=== PATIENT | male | born 1985 ===

== ENCOUNTER 2016-11-20 10:18 | Emergency (ER) | payer MEDICAID ==
[2016-11-20 10:26] VITALS: BP 137/75; PULSE 92; TEMP 97; O2SAT 98; BMI 18.4
[2016-11-20] MEDS ORDERED: Sodium Chloride 0.9% 1,000 ML IV STA (10:42)
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
[2016-11-20 11:23] LABS: ALB/GLOB RATIO 1.2 (1.0-2.1); ALKALINE PHOSPHATASE 60 U/L (38-126); ALT/SGPT 40 U/L (21-72); AST/SGOT 26 U/L (17-59); BILIRUBIN,TOTAL 0.7 mg/dl (0.2-1.3); BLOOD UREA NITROGEN 17 mg/dl (9-20); CALCIUM 9.6 mg/dL (8.4-10.2); CARBON DIOXIDE 28 mmol/L (22-30); CHLORIDE 103 mmol/L (98-107); GFR AFRICAN-AMERICAN > 60; GLUCOSE,RANDOM 91 mg/dL (75-110); POTASSIUM 4.1 MMOL/L (3.6-5.0); SODIUM 140 mmol/l (132-148); TOTAL PROTEIN 8.2 G/DL (6.3-8.2)
--- NOTE | 2016-11-20 11:30 | CT ---
PROCEDURE: CT HEAD WITHOUT CONTRAST. HISTORY: headache COMPARISON: 10/11/2012 TECHNIQUE: Axial computed tomography images were obtained through the head/brain without intravenous contrast. Radiation dose: Total exam DLP = 868.43 mGy-cm. FINDINGS: HEMORRHAGE: No intracranial hemorrhage. BRAIN: No mass effect or edema. No atrophy or chronic microvascular ischemic changes. VENTRICLES: Unremarkable. No hydrocephalus. CALVARIUM: Unremarkable. PARANASAL SINUSES: Unremarkable as visualized. No significant inflammatory changes. MASTOID AIR CELLS: Unremarkable as visualized. No inflammatory changes. OTHER FINDINGS: None. IMPRESSION: Normal CT of the Head. No intracranial mass, hemorrhage or evidence of acute infarct.
[2016-11-20 11:32] LABS: BASO % 0.3 % (0.0-2.0); EOS # 0.1 K/uL (0.0-0.7); EOS % 0.8 % (0.0-4.0); HEMATOCRIT 46.5 % (35.0-51.0); LYMPH # 1.7 K/uL (1.0-4.3); LYMPH % 16.6 % (20.0-40.0); MEAN CELL VOLUME 85.6 fl (80.0-94.0); MEAN CORPUSCULAR HGB CONC 32.7 g/dL (33.0-37.0); MEAN PLATELET VOLUME 8.2 fl (7.2-11.7); MONO # 0.8 K/uL (0.0-0.8); MONO % 8.1 % (0.0-10.0); NEUT # 7.5 K/uL (1.8-7.0); NEUT % 74.2 % (50.0-75.0); RED CELL DISTRIBUTION WIDTH 13.6 % (11.5-14.5); WHITE BLOOD COUNT 10.1 K/uL (4.8-10.8)
--- NOTE | 2016-11-23 10:18 | CARD ---
APPROVED REPORT EKG Measurement Heart [id number] <Conclusion> Normal sinus rhythm Minimal voltage criteria for LVH, may be normal variant Borderline ECG
== END 2016-11-20 13:35 | disposition home or self-care (01) ==
LOC: H.ER 10:18
DX: G40.909 Epilepsy, unspecified, not intractable, without status epilepticus (principal); R51 Headache

== ENCOUNTER 2017-05-21 16:57 | Emergency (ER) | payer MEDICAID, OTHER ==
[2017-05-21 16:57] VITALS: BMI 18.4
[2017-05-21 17:11] VITALS: BP 132/89; PULSE 79; RESP 20; TEMP 98.2; O2SAT 99
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
--- NOTE | 2017-05-21 17:54 | CT ---
PROCEDURE: CT HEAD WITHOUT CONTRAST. HISTORY: headache COMPARISON: None available. TECHNIQUE: Axial computed tomography images were obtained through the head/brain without intravenous contrast. Radiation dose: Total exam DLP = 855 mGy-cm. This CT exam was performed using one or more of the following dose reduction techniques: Automated exposure control, adjustment of the mA and/or kV according to patient size, and/or use of iterative reconstruction technique. FINDINGS: HEMORRHAGE: No intracranial hemorrhage. BRAIN: No mass effect or edema. No atrophy or chronic microvascular ischemic changes. VENTRICLES: Unremarkable. No hydrocephalus. CALVARIUM: Unremarkable. PARANASAL SINUSES: Unremarkable as visualized. No significant inflammatory changes. MASTOID AIR CELLS: Unremarkable as visualized. No inflammatory changes. OTHER FINDINGS: None. IMPRESSION: Normal CT of the Head.
[2017-05-21 17:57] LABS: ALCOHOL SERUM < 10 mg/dl (0-10); BLOOD UREA NITROGEN 19 mg/dl (9-20); CALCIUM 9.2 mg/dL (8.4-10.2); CARBON DIOXIDE 27 mmol/L (22-30); CHLORIDE 104 mmol/L (98-107); GFR AFRICAN-AMERICAN > 60; GLUCOSE,RANDOM 83 mg/dL (75-110); POTASSIUM 4.5 MMOL/L (3.6-5.0); SODIUM 141 mmol/l (132-148)
[2017-05-21 18:03] LABS: BASO # 0.1 K/uL (0.0-0.2); BASO % 0.7 % (0.0-2.0); EOS # 0.3 K/uL (0.0-0.7); EOS % 3.3 % (0.0-4.0); HEMATOCRIT 43.5 % (35.0-51.0); LYMPH # 2.8 K/uL (1.0-4.3); LYMPH % 27.2 % (20.0-40.0); MEAN CELL VOLUME 87.4 fl (80.0-94.0); MEAN CORPUSCULAR HEMOGLOBIN 28.2 pg (27.0-31.0); MEAN CORPUSCULAR HGB CONC 32.2 g/dL (33.0-37.0); MEAN PLATELET VOLUME 8.2 fl (7.2-11.7); MONO # 0.7 K/uL (0.0-0.8); MONO % 6.4 % (0.0-10.0); NEUT # 6.3 K/uL (1.8-7.0); NEUT % 62.4 % (50.0-75.0); RED CELL DISTRIBUTION WIDTH 13.9 % (11.5-14.5); WHITE BLOOD COUNT 10.1 K/uL (4.8-10.8)
--- NOTE | 2017-05-22 08:38 | CARD ---
APPROVED REPORT EKG Measurement Heart [id number] <Conclusion> Normal sinus rhythm Normal ECG
== END 2017-05-21 18:00 | disposition left against medical advice (07) ==
LOC: H.ER 16:57
DX: R56.9 Unspecified convulsions (principal)

== ENCOUNTER 2017-09-13 17:28 | Emergency (ER) | payer MEDICAID, OTHER ==
[2017-09-13 17:28] VITALS: BMI 18.4
[2017-09-13 17:34] VITALS: BP 134/66; PULSE 78; RESP 16; TEMP 99.2; O2SAT 99
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
== END 2017-09-13 18:35 | disposition left against medical advice (07) ==
LOC: H.ER 17:28
DX: G40.909 Epilepsy, unspecified, not intractable, without status epilepticus (principal); S09.90XA Unspecified injury of head, initial encounter; W19.XXXA Unspecified fall, initial encounter; Y92.89 Other specified places as the place of occurrence of the external cause

== ENCOUNTER 2017-11-05 19:50 | Emergency (ER) | payer OTHER ==
[2017-11-05 19:50] VITALS: BMI 18.4
[2017-11-05 20:17] VITALS: BP 134/79; PULSE 81; RESP 18; TEMP 97.9; O2SAT 97
[2017-11-05 20:36] LABS: CALCIUM 9.4 mg/dL (8.4-10.2); GFR AFRICAN-AMERICAN > 60; GFR NON-AFRICAN AMERICAN > 60
[2017-11-05 20:37] LABS: BLOOD UREA NITROGEN 15 mg/dl (9-20)
--- NOTE | 2017-11-05 20:50 | ED PDOC ---
HPI: Seizure Time Seen by Provider: 11/05/17 19:59 Chief Complaint (Nursing): Seizure Chief Complaint (Provider): Seizure History Per: Patient, Other (girl friend) History/Exam Limitations: no limitations Recent Seizure Activity Began: Hours Ago: (1 hour prior to arrival) Number Of Seizures: One Length Of Seizures (Duration): Minutes (5 minutes) Associated Symptoms: Bit Tongue Additional Complaint(s): 32 yo male, brought in with EMS and girlfriend, with a history of seizure disorder, presents to the ED after enduring a 5 minute seizure during dinner, onset of 1 hour prior to arrival. Patient is supposed to be taking Keppra BID, but has been noncompliant because he does not like the way he feels on the medication. Patient experienced a seizure with tonic-clonic activity associated with frothy and bloody spit up with some tongue biting. Past Medical History Reviewed: Historical Data, Nursing Documentation, Vital Signs Vital Signs: Last Vital Signs Temp 97.9 F 11/05/17 20:17 Pulse 81 11/05/17 20:17 Resp 18 11/05/17 20:17 BP 134/79 11/05/17 20:17 Pulse Ox 97 11/05/17 20:57 - Medical History PMH: Seizures Denies: HTN - Surgical History Surgical History: No Surg Hx - Family History Family History: States: Unknown Family Hx - Social History Current smoker - smoking cessation education provided: Yes (heavy smoker >10 cigarettes daily) Ex-Smoker (has not smoked in the last 12 months): No Alcohol: Social - Immunization History Hx Tetanus Toxoid Vaccination: No Hx Influenza Vaccination: No Hx Pneumococcal Vaccination: No - Home Medications Home Medications: Ambulatory Orders Medication Instructions Recorded Keppra 500 mg PO BID 01/10/17 Levetiracetam [Keppra] 500 mg PO BID #60 tablet 09/13/17 - Allergies Allergies/Adverse Reactions: Allergies Allergy/AdvReac Type Severity Reaction Status Date / Time No Known Allergies Allergy Verified 11/05/17 19:51 Review of Systems ROS Statement: Except As Marked, All Systems Reviewed And Found Negative ENT: Positive for: Other (tongue biting) Neurological: Positive for: Seizures Physical Exam - Reviewed Nursing Documentation Reviewed: Yes Vital Signs Reviewed: Yes - Physical Exam Appears: Positive for: Well Head Exam: Positive for: ATRAUMATIC, NORMAL INSPECTION, NORMOCEPHALIC Skin: Positive for: Normal Color, Warm Eye Exam: Positive for: Normal appearance, EOMI, PERRL ENT: Positive for: Normal ENT Inspection Neck: Positive for: Normal, Painless ROM, Supple Cardiovascular/Chest: Positive for: Regular Rate, Rhythm. Negative for: Murmur Respiratory: Positive for: Normal Breath Sounds. Negative for: Respiratory Distress Gastrointestinal/Abdominal: Positive for: Normal Exam, Soft. Negative for: Tenderness Back: Positive for: Normal Inspection Extremity: Positive for: Normal ROM. Negative for: Pedal Edema, Deformity Neurologic/Psych: Positive for: Alert, Oriented (x3). Negative for: Motor/ Sensory Deficits, Mood/Affect, Cerebellar Tests, Gait, Aphasia, Facial Droop - Laboratory Results Result Diagrams: 11/05/17 20:19 - ECG O2 Sat by Pulse Oximetry: 97 (RA) Pulse Ox Interpretation: Normal Medical Decision Making Medical Decision Making: Time: --20:10 Impression: --Seizure in setting of non compliance with medication Plan: --KEPPRA 750mg Reassess 915 Patient without seizure activity in ER. Neurologically intact with normal vitals, expressed the dire importance of followup with neurology as soon as possible with patient, who verbalized understanding. Return precautions discussed. Scribe Attestation: Documented by Adam Diaz acting as a scribe for Enrique Jansen MD. Provider Attestation: All medical record entries made by the Scribe were at my direction and personally dictated by me. I have reviewed the chart and agree that the record accurately reflects my personal performance of the history, physical exam, medical decision making, and the department course for this patient. I have also personally directed, reviewed, and agree with the discharge instructions and disposition. Disposition - Clinical Impression Clinical Impression: Recurrent seizures - Disposition Referrals: Tien Anthony MD [Medical Doctor] - Disposition: Routine/Home Disposition Time: 21:15 Condition: STABLE Additional Instructions: Please followup with neurolgy in 1 - 2 days to have your medications adjusted. Instructions: Medication Safety, Adult, Seizures Forms: [employer] (Armenian)
== END 2017-11-05 21:25 | disposition home or self-care (01) ==
LOC: H.ER 19:50
DX: G40.909 Epilepsy, unspecified, not intractable, without status epilepticus (principal); Z91.14 Patient's other noncompliance with medication regimen; F17.210 Nicotine dependence, cigarettes, uncomplicated
CPT/HCPCS: 80048; 82948; 96374; 99285; J1953

== ENCOUNTER 2017-12-04 23:24 | Emergency (ER) | payer MEDICAID, OTHER ==
[2017-12-04 23:25] VITALS: BMI 18.4
[2017-12-04 23:31] VITALS: O2SAT 98
[2017-12-04] MEDS ORDERED: Sodium Chloride 0.9% 1,000 ML IV STA ×2 (23:34)
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
[2017-12-05 00:35] LABS: BASO # 0.1 K/uL (0.0-0.2); BASO % 0.4 % (0.0-2.0); EOS # 1.2 K/uL (0.0-0.7); HEMOGLOBIN 15.5 g/dL (12.0-18.0); LYMPH # 9.6 K/uL (1.0-4.3); LYMPH % 40.4 % (20.0-40.0); MEAN CELL VOLUME 91.1 fl (80.0-94.0); MEAN CORPUSCULAR HEMOGLOBIN 28.5 pg (27.0-31.0); MEAN CORPUSCULAR HGB CONC 31.3 g/dL (33.0-37.0); MEAN PLATELET VOLUME 8.9 fl (7.2-11.7); MONO # 1.7 K/uL (0.0-0.8); MONO % 7.3 % (0.0-10.0); NEUT # 11.2 K/uL (1.8-7.0); NEUT % 46.9 % (50.0-75.0); RBC 5.44 Mil/uL (4.40-5.90); RED CELL DISTRIBUTION WIDTH 14.8 % (11.5-14.5); WHITE BLOOD COUNT 23.8 K/uL (4.8-10.8)
[2017-12-05 01:12] LABS: ALB/GLOB RATIO 1.4 (1.0-2.1); ALBUMIN 5.3 g/dL (3.5-5.0); ALT/SGPT 52 U/L (21-72); AST/SGOT 40 U/L (17-59); BLOOD UREA NITROGEN 16 mg/dl (9-20); CALCIUM 10.1 mg/dL (8.4-10.2); GFR AFRICAN-AMERICAN > 60; GFR NON-AFRICAN AMERICAN > 60
--- NOTE | 2017-12-05 02:10 | ED PDOC ---
- Laboratory Results Result Diagrams: 12/04/17 23:57 12/04/17 23:57 - ECG O2 Sat by Pulse Oximetry: 98 - Progress ED Course And Treament: 12am Rec'd endorsement from Dr Logan. Pt with h/o seizure d/o who is noncompliant with medications, presenting s/p seizure. Was also combative on arrival, questionable if due to postictal state. From previous charts pt has also h/o UDS with +PCP and +opiates. Disposition - Clinical Impression Clinical Impression: Seizure - Disposition Condition: FAIR Forms: [facility] (Romansh)
[2017-12-05] MEDS ORDERED: levETIRAcetam 500 MG in Sodium Chloride 0.9% 100 ML IVPB ONE (05:05)
[2017-12-05 05:55] LABS: BARBITURATES, UR NEGATIVE (NEGATIVE); BENZODIAZEPINES, UR NEGATIVE (NEGATIVE); OPIATES, UR POSITIVE (NEGATIVE); PHENCYCLIDINE, UR NEGATIVE (NEGATIVE)
[2017-12-05 06:38] VITALS: BP 123/60; PULSE 80; RESP 20
--- NOTE | 2017-12-05 10:29 | CT ---
PROCEDURE: CT HEAD WITHOUT CONTRAST. HISTORY: r/o bleed COMPARISON: CT head dated 05/21/2017. TECHNIQUE: Axial computed tomography images were obtained through the head/brain without intravenous contrast. Radiation dose: Total exam DLP = 931.3 mGy-cm. This CT exam was performed using one or more of the following dose reduction techniques: Automated exposure control, adjustment of the mA and/or kV according to patient size, and/or use of iterative reconstruction technique. FINDINGS: HEMORRHAGE: No intracranial hemorrhage. BRAIN: No mass effect or edema. No atrophy or chronic microvascular ischemic changes. VENTRICLES: Unremarkable. No hydrocephalus. CALVARIUM: Unremarkable. PARANASAL SINUSES: Bilateral frontal, sphenoid and ethmoid air cell opacification. MASTOID AIR CELLS: Unremarkable as visualized. No inflammatory changes. OTHER FINDINGS: None. IMPRESSION: No acute intracranial pathology. Sinus disease.
--- NOTE | 2017-12-05 10:30 | RAD ---
HISTORY: cough COMPARISON: Chest radiograph dated 06/28/2015. FINDINGS: LUNGS: No active pulmonary disease. PLEURA: No significant pleural effusion identified, no pneumothorax apparent. CARDIOVASCULAR: Normal. OSSEOUS STRUCTURES: No significant abnormalities. VISUALIZED UPPER ABDOMEN: Normal. OTHER FINDINGS: None. IMPRESSION: No active disease.
--- NOTE | 2017-12-05 14:51 | CARD ---
APPROVED REPORT EKG Measurement Heart [id number] [place] 154P38 [id number] <Conclusion> Normal sinus rhythm ST elevation, consider early repolarization, pericarditis, or injury Abnormal ECG
== END 2017-12-05 06:58 | disposition home or self-care (01) ==
LOC: H.ER 23:24
DX: G40.909 Epilepsy, unspecified, not intractable, without status epilepticus (principal)
CPT/HCPCS: 70450; 71045; 80053; 80299; 80320; 80324; 80345; 80346; 80349; 80353; 80358; 80361; 82948; 83992; 85025; 93005; 96361; 96365; 96375; 99285; J1953; J2060; J7040; J7042

== ENCOUNTER 2018-08-14 17:29 | Inpatient (IN) | payer OTHER ==
[2018-08-14 17:29] VITALS: BMI 18.4
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
[2018-08-14 18:57] LABS: HEMOGLOBIN 13.9 g/dL (12.0-18.0); MEAN CORPUSCULAR HEMOGLOBIN 28.4 pg (27.0-31.0); MEAN CORPUSCULAR HGB CONC 32.3 g/dL (33.0-37.0); RBC 4.91 Mil/uL (4.40-5.90); RED CELL DISTRIBUTION WIDTH 13.8 % (11.5-14.5); WHITE BLOOD COUNT 12.9 K/uL (4.8-10.8)
[2018-08-14 18:59] LABS: SQUAMOUS EPITHIAL < 1 /hpf (0-5); URINE BACTERIA RARE (<OCC); URINE BILIRUBIN NEGATIVE (NEGATIVE); URINE BLOOD NEGATIVE (NEGATIVE); URINE CLARITY SLIGHTY-CLOUDY (Clear); URINE COLOR YELLOW (YELLOW); URINE GLUCOSE (UA) NEG (NEGATIVE); URINE HYALINE CAST 0-2 /hpf (0-2); URINE LEUKOCYTE ESTERASE NEG Leu/uL (Negative); URINE PROTEIN NEGATIVE (NEGATIVE)
[2018-08-14 19:05] LABS: ALB/GLOB RATIO 1.2 (1.0-2.1); ALBUMIN 4.1 g/dL (3.5-5.0); ALT/SGPT 58 U/L (21-72); AST/SGOT 42 U/L (17-59); BLOOD UREA NITROGEN 12 mg/dl (9-20); CALCIUM 9.4 mg/dL (8.4-10.2); GFR NON-AFRICAN AMERICAN > 60
[2018-08-14 19:12] LABS: BARBITURATES, UR NEGATIVE (NEGATIVE); BENZODIAZEPINES, UR NEGATIVE (NEGATIVE); OPIATES, UR NEGATIVE (NEGATIVE); PHENCYCLIDINE, UR NEGATIVE (NEGATIVE)
[2018-08-14 20:56] VITALS: O2SAT 97
[2018-08-14] MEDS ORDERED: Divalproex 500 mg ER (ONCE DAILY formulation) PO ONE (21:03)
[2018-08-14] MEDS ORDERED: Alum-Mag Hydrox-Simethicone Susp (30 mL) PO PRN (21:25)
[2018-08-14] MEDS ORDERED: DiphenhydrAMINE 50 mg/ml Inj IM PRN (21:25)
[2018-08-14] MEDS ORDERED: Magnesium Hydroxide Susp 30 ml UD PO PRN (21:25)
--- NOTE | 2018-08-14 21:47 | PCM.BM ---
<Himanshu Membreno - Last Filed: 08/14/18 21:44> Treatment Plan Problems - Problems identified on initial assessmt Auditory Hallucinations Date Initiated: 08/14/18 Time Initiated: 21:45 Assessment reference: NA Status: Active Medication nonadherence Date Initiated: 08/14/18 Time Initiated: 21:45 Assessment reference: NA Status: Active Treatment assets and liabiliti Patient Assests: good support system, negotiates basic needs Patient Liabilities: substance abuse (uses marijuana everyday), medical problems (seizure disorder) - Milieu Protocol Maintain good personal hygiene: daily Encourage regular showers, daily Remind patient to perform daily oral care, daily Assist patient to perform ADL's Conduct patient checks and document Observation sheet: Q15 minutes Maintain personal safety: every shift Educate patient to report safety concerns to staff, every shift Monitor environment for contraband/sharps Medication safety: Monitor for expected outcome, potential side effects: every shift, Assess barriers to learning: every shift, Assess readiness for medication education: every shift <Awa Bell - Last Filed: 08/15/18 09:18> - Diagnosis (1) Substance-induced psychotic disorder Status: Acute Interventions: Medication management, Individual and group therapy, Psychoeducation 08/15/18 09:18 (2) Cannabis abuse Status: Acute Interventions: Psychoeducation, Motivational Interviewing 08/15/18 09:19 <Gia Zapata M - Last Filed: 08/15/18 12:44> Family Contact Family involvement: Family/SO is involved Family contact: Patient agrees to contact, Family has been contacted by patient, Telephone contact initiated by staff Family contact name: Yvonne- Mother Family contacted how many times per week?: 1 - Goals for Treatment Patient goals for treatment: Pt's goal is to be free of drug abuse. Pt will learn 5 triggers for drug use. Pt will avoid people, place and situations where temptation might be overwhelming. Pt will attend clinical and activity groups to learn different coping skills to better address and handle stressful situations. Discharge/Continuing Care - Education Needs Education Needs: Family Medication, Family Diagnosis/Disease Process, Family Coping Skills, Family Community resources, Family Health Practices/Safety, Family Personal Hygiene/Grooming, Family Aftercare Safety Plan, Patient Medication, Patient Diagnosis/Disease Process, Patient Coping Skills, Patient Community resources, Patient Health Practices/Safety, Patient Personal Hygiene/Grooming, Patient Aftercare Safety Plan - Discharge Discharge Criteria: Tolerates medication w/o severe side effects, Free of agitation, Ability to care for self, Other (Free of drug abuse) Discharge to:: Home, With Family - Additional Comments 08/15/18 11:55 Pt seen and discussed in team meeting. Reason for hospitalization reviewed and discussed. Pt reported he was referred to the ED because "the other night i caught a seizure." Pt advised that it is not normal for a seizure to cause pt's to undress themselves in public. Pt became irritable with team members. Pt reported that he would not like to discus the events that took place prior to admission as "you weren't there to see it." Pt's u-tox is positive for marijuana and reportedly, pt uses large amount of marijuana daily. Pt signed a 48 hour notice of intent to leave at 855am on 08/15/2018. Pt has a tentative discharge date for tomorrow, 08/16/2018. Labor Expediter inquired about after care referrals such as outpatient substance abuse and/or mental health treatment; pt was hesitant to referrals. Pt will most likely not attend scheduled outpatient appointments therefore pt will be provided with a list of resources in the community. Pt refusing medications. Pt provided script writer with verbal and written authorization to contact his mother, Yvonne for additional information. Labor Expediter will continue to follow case. - Treatment Team Participation Discussed with Family/SO: No Was Patient/Family/SO present at Treatment Team Meeting: Yes
[2018-08-15 06:41] LABS: BASO % 0.4 % (0.0-2.0); EOS # 0.2 K/uL (0.0-0.7); EOS % 2.4 % (0.0-4.0); HEMOGLOBIN 13.8 g/dL (12.0-18.0); LYMPH # 2.6 K/uL (1.0-4.3); LYMPH % 26.2 % (20.0-40.0); MEAN CELL VOLUME 86.3 fl (80.0-94.0); MEAN CORPUSCULAR HEMOGLOBIN 28.8 pg (27.0-31.0); MEAN CORPUSCULAR HGB CONC 33.3 g/dL (33.0-37.0); MEAN PLATELET VOLUME 7.6 fl (7.2-11.7); MONO # 0.8 K/uL (0.0-0.8); MONO % 8.3 % (0.0-10.0); NEUT # 6.2 K/uL (1.8-7.0); NEUT % 62.7 % (50.0-75.0); NRBC % 0.1 % (0.0-0.0); RBC 4.8 Mil/uL (4.40-5.90); WHITE BLOOD COUNT 9.9 K/uL (4.8-10.8)
[2018-08-15 07:08] LABS: T4 7.94 ug/dl (5.5-11.0)
--- NOTE | 2018-08-15 09:05 | CT ---
Date of service: 08/14/2018 PROCEDURE: CT HEAD WITHOUT CONTRAST. HISTORY: head injury, new onset psychosis COMPARISON: 12/05/2017. TECHNIQUE: Axial computed tomography images were obtained through the head/brain without intravenous contrast. Radiation dose: Total exam DLP = 860.51 mGy-cm. This CT exam was performed using one or more of the following dose reduction techniques: Automated exposure control, adjustment of the mA and/or kV according to patient size, and/or use of iterative reconstruction technique. FINDINGS: HEMORRHAGE: No intracranial hemorrhage. BRAIN: Mendoza-white matter differentiation is preserved. There is no mass, mass effect or abnormal extra-axial fluid collection. There is no territorial infarction. The midline sagittal structures are normal. VENTRICLES: The ventricles are normal in size, shape and configuration. CALVARIUM: There is no calvarial fracture or extracranial soft tissue swelling. PARANASAL SINUSES: There is moderate polypoid mucosal thickening in the right frontal sinus, left sphenoid chamber and scattered mucosal thickening in the ethmoid air cells. MASTOID AIR CELLS: Predominantly clear. OTHER FINDINGS: None. IMPRESSION: No acute intracranial abnormality. Chronic right frontal and left sphenoid sinusitis. A preliminary report was provided by [employer].
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
--- NOTE | 2018-08-15 09:56 | RAD ---
Date of service: 08/14/2018 HISTORY: admission, psychosis COMPARISON: 12/05/2017. FINDINGS: LUNGS: The lungs are well inflated and clear. PLEURA: No pleural effusions or pneumothorax. CARDIOVASCULAR: The heart is normal in size. No aortic atherosclerotic calcification present. OSSEOUS STRUCTURES: Within normal limits for the patient's age. VISUALIZED UPPER ABDOMEN: Normal. OTHER FINDINGS: None. IMPRESSION: No active pulmonary disease.
--- NOTE | 2018-08-15 11:28 | CARD ---
APPROVED REPORT Date of service: 08/14/2018 EKG Measurement Heart [id number] <Conclusion> Normal sinus rhythm Normal ECG
--- NOTE | 2018-08-15 13:40 | CP.PCM.CON ---
History of Present Illness - History of Present Illness History of Present Illness: Reason for Consult: Per hospital protocol HPI: 33 year old male hx of traumatic brain injury with history of seizures, admitted to psych for bizarre behavior while intoxicated on marijuana. Patient smokes regularly for over ten years. Most of history obtained from chart review as patient willingly sleeps during evaluation. He denies any other medical problems. HD stable, NAD. ROS: Per HPI, all other systems reviewed and neg Past Patient History - Infectious Disease Hx of Infectious Diseases: None - Past Social History Alcohol: None Drugs: Cannabis - CARDIAC Hx Hypertension: No - NEUROLOGICAL Hx Seizures: Yes - HEENT Other/Comment: Fractured nose - PSYCHIATRIC Hx Substance Use: Yes (smokes marijuana daily) - SURGICAL HISTORY Hx Surgeries: Yes - ANESTHESIA Hx Anesthesia: Yes Hx Anesthesia Reactions: No Meds Allergies/Adverse Reactions: Allergies Allergy/AdvReac Type Severity Reaction Status Date / Time No Known Allergies Allergy Verified 11/10/17 16:37 - Medications Medications: Current Medications Acetaminophen (Tylenol 325mg Tab) 650 mg PO Q4 PRN PRN Reason: Pain, moderate (4-7) Al Hydrox/Mg Hydrox/Simethicone (Maalox Plus 30 Ml) 30 ml PO Q4 PRN PRN Reason: Dyspepsia Diphenhydramine HCl (Benadryl) 50 mg IM Q6 PRN PRN Reason: Extrapyramidal S/S Unable PO Diphenhydramine HCl (Benadryl) 50 mg PO Q6 PRN PRN Reason: Extrapyramidal Symptoms Diphenhydramine HCl (Benadryl) 50 mg PO HS PRN PRN Reason: Sleep Haloperidol (Haldol) 5 mg PO Q4 PRN PRN Reason: Agitation Haloperidol Lactate (Haldol) 5 mg IM Q4 PRN PRN Reason: Agitation, Unable to Take PO Levetiracetam (Keppra) 500 mg PO BID [facility] Last Admin: 08/15/18 11:47 Dose: 500 mg Lorazepam (Ativan) 2 mg IM Q4 PRN PRN Reason: Anxiety/Agitation,Unable PO Lorazepam (Ativan) 2 mg PO Q4 PRN PRN Reason: Anxiety/Agitation Magnesium Hydroxide (Milk Of Magnesia) 30 ml PO HS PRN PRN Reason: Constipation Risperidone (Risperdal Tab) 0.5 mg PO HS RALPH Physical Exam - Constitutional Appears: Non-toxic, No Acute Distress - Head Exam Head Exam: ATRAUMATIC, NORMOCEPHALIC - Eye Exam Eye Exam: EOMI, Normal appearance, PERRL - ENT Exam ENT Exam: Mucous Membranes Moist, Normal Oropharynx - Respiratory Exam Respiratory Exam: Clear to Auscultation Bilateral, NORMAL BREATHING PATTERN - Cardiovascular Exam Cardiovascular Exam: RRR, +S1, +S2 - GI/Abdominal Exam GI & Abdominal Exam: Normal Bowel Sounds, Soft. absent: Organomegaly, Tenderness - Extremities Exam Extremities exam: Positive for: normal capillary refill, pedal pulses present - Back Exam Back exam: absent: CVA tenderness (L), CVA tenderness (R) - Neurological Exam Neurological exam: Alert, Oriented x3 - Psychiatric Exam Psychiatric exam: Flat Affect, Normal Mood - Skin Skin Exam: Dry, Warm Results - Vital Signs Recent Vital Signs: Last Vital Signs Temp 97.1 F L 08/15/18 05:27 Pulse 72 08/15/18 05:27 Resp 20 08/15/18 05:27 BP 123/79 08/15/18 05:27 Pulse Ox 97 08/14/18 22:32 - Labs Result Diagrams: 08/15/18 06:25 08/14/18 18:52 Labs: Laboratory Results - last 24 hr 08/14/18 08/14/18 08/14/18 18:52 18:52 18:52 WBC 12.9 H RBC 4.91 Hgb 13.9 Hct 43.2 MCV 88.0 D MCH 28.4 MCHC 32.3 L RDW 13.8 Plt Count 284 MPV Neut % (Auto) Lymph % (Auto) Lanier % (Auto) Eos % (Auto) Baso % (Auto) Neut # (Auto) Lymph # (Auto) Lanier # (Auto) Eos # (Auto) Baso # (Auto) Sodium 141 Potassium 3.9 Chloride 105 Carbon Dioxide 25 Anion Gap 15 BUN 12 Creatinine 0.8 Est GFR ( Amer) > 60 Est GFR (Non-Af Amer) > 60 Random Glucose 90 Hemoglobin A1c Calcium 9.4 Total Bilirubin 0.5 AST 42 ALT 58 Alkaline Phosphatase 64 Total Protein 7.6 Albumin 4.1 Globulin 3.5 Albumin/Globulin Ratio 1.2 Triglycerides Cholesterol LDL Cholesterol Direct HDL Cholesterol Thyroxine (T4) TSH 3rd Generation Urine Color Urine Clarity Urine pH Ur Specific Casey Urine Protein Urine Glucose (UA) Urine Ketones Urine Blood Urine Nitrate Urine Bilirubin Urine Urobilinogen Ur Leukocyte Esterase Urine RBC (Auto) Urine Microscopic WBC Ur Squamous Epith Cells Urine Bacteria Hyaline Casts Urine Opiates Screen Negative Urine Methadone Screen Negative Ur Barbiturates Screen Negative Ur Phencyclidine Scrn Negative Ur Amphetamines Screen Negative U Benzodiazepines Scrn Negative U Oth Cocaine Metabols Negative U Cannabinoids Screen Positive H Alcohol, Quantitative < 10 08/14/18 08/15/18 08/15/18 18:52 06:25 06:25 WBC 9.9 RBC 4.80 Hgb 13.8 Hct 41.4 MCV 86.3 MCH 28.8 MCHC 33.3 RDW 14.0 Plt Count 250 MPV 7.6 Neut % (Auto) 62.7 Lymph % (Auto) 26.2 Lanier % (Auto) 8.3 Eos % (Auto) 2.4 Baso % (Auto) 0.4 Neut # (Auto) 6.2 Lymph # (Auto) 2.6 Lanier # (Auto) 0.8 Eos # (Auto) 0.2 Baso # (Auto) 0.0 Sodium Potassium Chloride Carbon Dioxide Anion Gap BUN Creatinine Est GFR ( Amer) Est GFR (Non-Af Amer) Random Glucose Hemoglobin A1c Calcium Total Bilirubin AST ALT Alkaline Phosphatase Total Protein Albumin Globulin Albumin/Globulin Ratio Triglycerides 139 Cholesterol 113 LDL Cholesterol Direct 76 HDL Cholesterol 27 L Thyroxine (T4) 7.94 TSH 3rd Generation 0.66 Urine Color Yellow Urine Clarity Slighty-cloudy Urine pH 6.0 Ur Specific Casey 1.019 Urine Protein Negative Urine Glucose (UA) Neg Urine Ketones Negative Urine Blood Negative Urine Nitrate Negative Urine Bilirubin Negative Urine Urobilinogen 2.0 Ur Leukocyte Esterase Neg Urine RBC (Auto) 3 Urine Microscopic WBC 2 Ur Squamous Epith Cells < 1 Urine Bacteria Rare Hyaline Casts 0-2 Urine Opiates Screen Urine Methadone Screen Ur Barbiturates Screen Ur Phencyclidine Scrn Ur Amphetamines Screen U Benzodiazepines Scrn U Oth Cocaine Metabols U Cannabinoids Screen Alcohol, Quantitative 08/15/18 06:25 WBC RBC Hgb Hct MCV MCH MCHC RDW Plt Count MPV Neut % (Auto) Lymph % (Auto) Lanier % (Auto) Eos % (Auto) Baso % (Auto) Neut # (Auto) Lymph # (Auto) Lanier # (Auto) Eos # (Auto) Baso # (Auto) Sodium Potassium Chloride Carbon Dioxide Anion Gap BUN Creatinine Est GFR ( Amer) Est GFR (Non-Af Amer) Random Glucose Hemoglobin A1c 5.1 Calcium Total Bilirubin AST ALT Alkaline Phosphatase Total Protein Albumin Globulin Albumin/Globulin Ratio Triglycerides Cholesterol LDL Cholesterol Direct HDL Cholesterol Thyroxine (T4) TSH 3rd Generation Urine Color Urine Clarity Urine pH Ur Specific Casey Urine Protein Urine Glucose (UA) Urine Ketones Urine Blood Urine Nitrate Urine Bilirubin Urine Urobilinogen Ur Leukocyte Esterase Urine RBC (Auto) Urine Microscopic WBC Ur Squamous Epith Cells Urine Bacteria Hyaline Casts Urine Opiates Screen Urine Methadone Screen Ur Barbiturates Screen Ur Phencyclidine Scrn Ur Amphetamines Screen U Benzodiazepines Scrn U Oth Cocaine Metabols U Cannabinoids Screen Alcohol, Quantitative Assessment & Plan - Assessment and Plan (Free Text) Plan: 33 year old male hx of traumatic brain injury with history of seizures, admitted to psych for bizarre behavior while intoxicated on marijuana. Patient smokes regularly for over ten years. Most of history obtained from chart review as patient willingly sleeps during evaluation. He denies any other medical problems. HD stable, NAD. Seizures continue Keppra
[2018-08-16 05:45] VITALS: BP 129/73; PULSE 66; RESP 18; TEMP 97.2
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
== END 2018-08-16 08:30 | disposition left against medical advice (07) | DRG 746 ==
LOC: H.ER 17:29 → H.ERHOLD 19:34 → H.STEP 20:55
PROVIDERS: ADMIT Psychiatry & Neurology Psychiatry; ATTEND Psychiatry & Neurology Psychiatry
PROC: HZ56ZZZ Individual Psychotherapy for Substance Abuse Treatment, Psychoeducation (ICD-10-PCS; principal; 2018-08-14)
PROC: GZHZZZZ Group Psychotherapy (ICD-10-PCS; 2018-08-14)
DX: F12.951 Cannabis use, unspecified with psychotic disorder with hallucinations (principal); R56.1 Post traumatic seizures; Z87.820 Personal history of traumatic brain injury; F17.200 Nicotine dependence, unspecified, uncomplicated